=== PATIENT | male | born 1960 | race African-American/Black ===

== ENCOUNTER 2017-06-22 11:18 | Emergency (ER) | payer MEDICARE, SELFPAY | END 2017-06-22 11:59 | disposition home or self-care (01) | LOC: BURERS 11:18 | DX: M54.5 Low back pain (principal); F32.9 Major depressive disorder, single episode, unspecified; Z79.891 Long term (current) use of opiate analgesic; Z79.899 Other long term (current) drug therapy | CPT/HCPCS: 99283 ==

== ENCOUNTER 2019-09-27 08:12 | Emergency (ER) | payer MEDICARE, BC | END 2019-09-27 08:46 | disposition home or self-care (01) | LOC: BURERS 08:12 | DX: M25.462 Effusion, left knee (principal); I10 Essential (primary) hypertension; F32.9 Major depressive disorder, single episode, unspecified; Z79.899 Other long term (current) drug therapy | CPT/HCPCS: 99281 ==

== ENCOUNTER 2024-10-17 06:28 | Emergency (ER) | payer BC, MEDICARE, OTHER | END 2024-10-17 20:45 | disposition home or self-care (01) | LOC: BURERS 06:28 | DX: S51.812A Laceration without foreign body of left forearm, initial encounter (principal); S39.012A Strain of muscle, fascia and tendon of lower back, initial encounter; Z23 Encounter for immunization; W22.8XXA Striking against or struck by other objects, initial encounter | CPT/HCPCS: 12004; 72100; 90471 ==